=== PATIENT | female | born 1960 | race Caucasian/White ===

== ENCOUNTER 2020-01-16 05:59 | Inpatient (IN) | payer BC ==
[~2020-01-16] VITALS: Ht 172.7 cm; Wt 77.7 kg
[2020-01-16] MEDS ORDERED: SODIUM CHLORIDE 0.9% 1,000 ML IV SCH (06:14)
[2020-01-16] MEDS ORDERED: ONDA8TAB9 PO (06:33)
[2020-01-16] MEDS ORDERED: SERT50TA28 PO (06:33)
[2020-01-16] MEDS ORDERED: IBUP-1222 PO (06:33)
[2020-01-16] MEDS ORDERED: TRAZ-175 PO (06:33)
[2020-01-16] MEDS ORDERED: OXYC-307 PO (06:33)
[2020-01-16] MEDS ORDERED: RIZA10TA34 PO (06:33)
[2020-01-16] MEDS ORDERED: GABA600T7 PO (06:33)
[2020-01-16] MEDS ORDERED: ZOLP-413 PO (06:33)
[2020-01-16] MEDS ORDERED: METO25TA35 PO (06:33)
[2020-01-16] MEDS ORDERED: CETI10CA PO (06:33)
[2020-01-16] MEDS ORDERED: BUTA1CAP30 PO (06:33)
[2020-01-16] MEDS ORDERED: MAGN400T36 PO (06:33)
[2020-01-16 06:34] VITALS: BP 124/82
[2020-01-16 06:50] LABS: BASOPHILS # (AUTO) 0.03 x10^3/uL (0-0.1); BASOPHILS % (AUTO) 1 % (0-1); EOSINOPHILS # (AUTO) 0.23 x10^3/uL (0-0.4); EOSINOPHILS % (AUTO) 3 % (1-7); LYMPHOCYTES # (AUTO) 1.86 x10^3/uL (1-3.4); LYMPHOCYTES % (AUTO) 27 % (22-44); MD NO; MEAN CORPUSCULAR HGB CONC 33.9 g/dL (32.4-35.8); MEAN CORPUSCULAR VOLUME 100.2 fL (80-100); MEAN PLATELET VOLUME 9.3 fL (7.4-10.4); MONOCYTES # (AUTO) 0.44 x10^3/uL (0.2-0.8); MONOCYTES % (AUTO) 7 % (2-9); NEUTROPHILS # (AUTO) 4.31 x10^3/uL (1.8-6.8); NEUTROPHILS % (AUTO) 63 % (42-75); PLATELET COUNT 195 x10^3/uL (130-400); RED BLOOD COUNT 4.12 x10^6/uL (3.82-5.3); RED CELL DISTRIBUTION WIDTH 13.3 % (9.6-15.2)
[2020-01-16 07:00] LABS: ANION GAP 5 mmol/L (5-15); CALCIUM 8.5 mg/dL (8.5-10.1); CHLORIDE 111 mmol/L (98-107); CREATININE 0.88 mg/dL (0.55-1.02)
[2020-01-16] MEDS ORDERED: MIDAZOLAM 1 MG/ML, 2ML ONE (07:41)
[2020-01-16] MEDS ORDERED: FENTANYL PF 100 MCG/2ML ONE ×2 (07:42→09:15)
[2020-01-16] MEDS ORDERED: ISOPROTERENOL 0.2MG/ML, 5ML ONE (07:42)
[2020-01-16] MEDS ORDERED: LIDOCAINE 1%, 20ML ONE (07:42)
[2020-01-16] MEDS ORDERED: MIDAZOLAM 1 MG/ML, 5ML ONE ×2 (09:15→09:34)
[2020-01-16] MEDS ORDERED: PROPOFOL 10 MG/ML, 100ML IV ONE (09:34)
[2020-01-16] MEDS ORDERED: ETOMIDATE 20 MG/10 ML ONE (09:34)
[2020-01-16] MEDS ORDERED: SODIUM BICARB 8.4%, 50ML SYRINGE ONE (09:34)
[2020-01-16] MEDS ORDERED: HEPARIN 1,000 UNITS/ML, 10ML ONE ×2 (09:39→10:13)
[2020-01-16] MEDS ORDERED: METOPROLOL TARTRATE 25 MG TAB PO PRN (10:30)
[2020-01-16] MEDS ORDERED: ACETAMINOPHEN 325 MG TABLET PO PRN (10:30)
[2020-01-16] MEDS ORDERED: IBUPROFEN 600 MG TABLET PO PRN (10:30)
[2020-01-16] MEDS ORDERED: ONDANSETRON 8 MG TABLET PO PRN (10:30)
[2020-01-16] MEDS ORDERED: RIZATRIPTAN 10MG TABLET PO PRN (10:30)
[2020-01-16] MEDS ORDERED: ZOLPIDEM 5MG TABLET PO PRN (10:30)
[2020-01-16] MEDS ORDERED: METOPROLOL 1 MG/ML, 5ML ONE (10:40)
[2020-01-16] MEDS: OXYcodone/APAP 10/325MG TABLET PO SCH ×3 (11:44→23:36)
[2020-01-16] MEDS ORDERED: SODIUM BICARBONATE 1 MEQ/ML, 50ML VIAL IVPush STA (12:47)
[2020-01-16] MEDS ORDERED: SODIUM BICARB 8.4%, 50ML SYRINGE IVPush STA (12:50)
[2020-01-16] MEDS ORDERED: PHENYLEPHRINE 50 MG in SODIUM CHLORIDE 0.9% 245 ML IV PRN (13:00)
[2020-01-16] MEDS ORDERED: SODIUM BICARB 8.4%, 50ML SYRINGE IVPush ONE (13:00)
[2020-01-16] MEDS ORDERED: MIDAZOLAM 1 MG/ML, 5ML IV ONE (13:14)
[2020-01-16 13:17] LABS: ALANINE AMINOTRANSFERASE 16 U/L (12-78); ALBUMIN 1.9 g/dL (3.4-5.0); ANION GAP 8 mmol/L (5-15); CHLORIDE 118 mmol/L (98-107); CREATININE 0.76 mg/dL (0.55-1.02)
[2020-01-16 13:20] LABS: ALKALINE PHOSPHATASE 49 U/L (45-117); BILIRUBIN,TOTAL 0.3 mg/dL (0.2-1.0)
[2020-01-16 13:24] LABS: CALCIUM 5.9 mg/dL (8.5-10.1)
[2020-01-16] MEDS ORDERED: NOREPINEPHRINE 8 MG in SODIUM CHLORIDE 0.9% 242 ML IV PRN (14:10)
[2020-01-16] MEDS ORDERED: LIDOCAINE-MPF 1%, 2ML ENDO PRN (14:30)
[2020-01-16] MEDS ORDERED: ETOMIDATE 20 MG/10 ML IVPush ONE (14:30)
[2020-01-16] MEDS ORDERED: PHARMACY MAY ADJ FOR RENAL FX MC SCH (14:30)
[2020-01-16] MEDS ORDERED: MIDAZOLAM 1 MG/ML, 5ML IVPush ONE (14:30)
[2020-01-16] MEDS: FENTANYL PF 100 MCG/2ML IVPush PRN ×4 (15:05→22:33)
[2020-01-16] MEDS: PROPOFOL 100 ML IV PRN ×3 (15:06→21:21)
[2020-01-16] MEDS: GABAPENTIN 300 MG CAPSULE PO SCH ×2 (17:16→21:38)
[2020-01-16] MEDS: FAMOTIDINE 20 MG/2 ML IV SCH ×2 (17:16→21:38)
[2020-01-16] MEDS ORDERED: TRAZODONE 100MG TABLET PO SCH (21:00)
[2020-01-17] MEDS: FENTANYL PF 100 MCG/2ML IVPush PRN ×3 (00:31→08:20)
[2020-01-17] MEDS: PROPOFOL 100 ML IV PRN ×2 (01:20→06:17)
[2020-01-17 03:45] VITALS: BP 122/75
[2020-01-17 05:21] LABS: MEAN CORPUSCULAR HEMOGLOBIN 34.4 pg (27.0-34.8); MEAN CORPUSCULAR HGB CONC 33.7 g/dL (32.4-35.8); MEAN CORPUSCULAR VOLUME 102.1 fL (80-100); MEAN PLATELET VOLUME 9.4 fL (7.4-10.4); PLATELET COUNT 163 x10^3/uL (130-400); RED BLOOD COUNT 3.67 x10^6/uL (3.82-5.3)
[2020-01-17] MEDS: OXYcodone/APAP 10/325MG TABLET PO SCH ×4 (05:23→23:00)
[2020-01-17 05:25] LABS: ANION GAP 5 mmol/L (5-15); CHLORIDE 112 mmol/L (98-107); CREATININE 0.58 mg/dL (0.55-1.02)
[2020-01-17 05:53] LABS: BASOPHILS # (AUTO) 0.03 x10^3/uL (0-0.1); BASOPHILS % (AUTO) 0 % (0-1); EOSINOPHILS # (AUTO) 0.05 x10^3/uL (0-0.4); EOSINOPHILS % (AUTO) 0 % (1-7); LYMPHOCYTES # (AUTO) 0.89 x10^3/uL (1-3.4); LYMPHOCYTES % (AUTO) 7 % (22-44); MD SCAN; MONOCYTES % (AUTO) 6 % (2-9); NEUTROPHILS # (AUTO) 11.05 x10^3/uL (1.8-6.8); NEUTROPHILS % (AUTO) 87 % (42-75)
[2020-01-17] MEDS ORDERED: ALBUMIN HUMAN 25% 100 ML IV ONE ×2 (07:30)
[2020-01-17] MEDS ORDERED: MIDAZOLAM 1 MG/ML, 2ML IVPush PRN (07:30)
[2020-01-17] MEDS: FAMOTIDINE 20 MG/2 ML IV SCH ×2 (08:17→20:39)
[2020-01-17] MEDS: GABAPENTIN 300 MG CAPSULE PO SCH ×3 (08:18→19:40)
[2020-01-17] MEDS: MAGNESIUM OXIDE 400 MG TABLET PO SCH (09:00)
[2020-01-17] MEDS ORDERED: CETIRIZINE 10 MG TABLET PO SCH (09:00)
[2020-01-17] MEDS ORDERED: SERTRALINE 50MG TABLET PO SCH (09:00)
[2020-01-17 20:49] VITALS: BP 103/71
[2020-01-17] MEDS: TRAZODONE 100MG TABLET PO SCH (23:13)
[2020-01-17] MEDS ORDERED: SODIUM CHLORIDE 0.9%, 250ML IVBOLUS ONE (23:30)
[2020-01-18 01:08] VITALS: BP 91/56
[2020-01-18 03:29] VITALS: BP 104/69
[2020-01-18] MEDS: OXYcodone/APAP 10/325MG TABLET PO SCH ×4 (03:35→23:21)
[2020-01-18 04:30] LABS: ANION GAP 6 mmol/L (5-15); CALCIUM 8.6 mg/dL (8.5-10.1); CHLORIDE 109 mmol/L (98-107)
[2020-01-18 04:38] LABS: BASOPHILS # (AUTO) 0.02 x10^3/uL (0-0.1); BASOPHILS % (AUTO) 0 % (0-1); EOSINOPHILS # (AUTO) 0.08 x10^3/uL (0-0.4); EOSINOPHILS % (AUTO) 1 % (1-7); LYMPHOCYTES % (AUTO) 14 % (22-44); MD NO; MEAN CORPUSCULAR HGB CONC 33.6 g/dL (32.4-35.8); MEAN CORPUSCULAR VOLUME 101.3 fL (80-100); MEAN PLATELET VOLUME 9.8 fL (7.4-10.4); MONOCYTES # (AUTO) 0.88 x10^3/uL (0.2-0.8); MONOCYTES % (AUTO) 9 % (2-9); NEUTROPHILS # (AUTO) 7.73 x10^3/uL (1.8-6.8); NEUTROPHILS % (AUTO) 77 % (42-75); PLATELET COUNT 122 x10^3/uL (130-400); RED BLOOD COUNT 3.09 x10^6/uL (3.82-5.3); RED CELL DISTRIBUTION WIDTH 13.4 % (9.6-15.2)
[2020-01-18] MEDS ORDERED: MAGNESIUM HYDROXIDE 8%, 30ML UDC PO PRN (08:30)
[2020-01-18] MEDS: CETIRIZINE 10 MG TABLET PO SCH (08:40)
[2020-01-18] MEDS: MAGNESIUM OXIDE 400 MG TABLET PO SCH (08:40)
[2020-01-18] MEDS: FAMOTIDINE 20 MG TABLET PO SCH ×2 (08:40→21:45)
[2020-01-18] MEDS: GABAPENTIN 300 MG CAPSULE PO SCH ×3 (08:40→21:46)
[2020-01-18 10:21] VITALS: BP 115/72
[2020-01-18 13:28] VITALS: BP 93/56
[2020-01-18 19:17] VITALS: BP 100/62
[2020-01-18] MEDS ORDERED: CETIRIZINE 10 MG TABLET PO SCH (21:00)
[2020-01-18] MEDS ORDERED: SERTRALINE 50MG TABLET PO SCH (21:00)
[2020-01-18] MEDS: TRAZODONE 100MG TABLET PO SCH (21:46)
[2020-01-19 02:08] VITALS: BP 95/62
[2020-01-19] MEDS: OXYcodone/APAP 10/325MG TABLET PO SCH (05:34)
[2020-01-19] MEDS ORDERED: ASPI81TA45 PO (08:23)
[2020-01-19] MEDS: GABAPENTIN 300 MG CAPSULE PO SCH (09:40)
[2020-01-19] MEDS: FAMOTIDINE 20 MG TABLET PO SCH (09:40)
[2020-01-19] MEDS: CETIRIZINE 10 MG TABLET PO SCH (09:40)
[2020-01-19] MEDS: MAGNESIUM OXIDE 400 MG TABLET PO SCH (09:40)
== END 2020-01-19 11:17 | disposition home or self-care (01) | DRG 273 ==
LOC: CACL 05:59 → 5SO 10:07 → CCU 12:56 → 5SO 01-18 09:46
PROVIDERS: ADMIT Internal Medicine Cardiovascular Disease; ATTEND Internal Medicine Cardiovascular Disease
PROC: 02583ZZ Destruction of Conduction Mechanism, Percutaneous Approach (ICD-10-PCS; principal; 2020-01-16)
PROC: 02K83ZZ Map Conduction Mechanism, Percutaneous Approach (ICD-10-PCS; 2020-01-16)
PROC: 4A023FZ Measurement of Cardiac Rhythm, Percutaneous Approach (ICD-10-PCS; 2020-01-16)
PROC: 4A0234Z Measurement of Cardiac Electrical Activity, Percutaneous Approach (ICD-10-PCS; 2020-01-16)
PROC: 0W9D3ZZ Drainage of Pericardial Cavity, Percutaneous Approach (ICD-10-PCS; 2020-01-16)
DX: I47.1 Supraventricular tachycardia (principal); E43 Unspecified severe protein-calorie malnutrition; J96.01 Acute respiratory failure with hypoxia; D62 Acute posthemorrhagic anemia; I31.3 Pericardial effusion (noninflammatory); I31.4 Cardiac tamponade; Z99.11 Dependence on respirator [ventilator] status; D75.89 Other specified diseases of blood and blood-forming organs; F32.9 Major depressive disorder, single episode, unspecified; F41.9 Anxiety disorder, unspecified; G89.29 Other chronic pain; I48.91 Unspecified atrial fibrillation; Z79.891 Long term (current) use of opiate analgesic; Z87.891 Personal history of nicotine dependence; Z88.6 Allergy status to analgesic agent; Z68.26 Body mass index [BMI] 26.0-26.9, adult
CPT/HCPCS: 33016; 36415; 36600; 93462; 93613; 93621; 93653; 93662; J3490; 71045; 71046; 80048; 80053; 82533; 82803; 82962; 83735; 84443; 84478; 85014; 85018; 85025; 85347; 86850; 86900; 86923; 87070; 87081; 87205; 93005; 93308; 93321; 93325; 94002; 94003; 99156; 99157; C1729; C1732; C1766; C1893; C1894; G0378; J1644; J2250; J2704; J3010; P9047; C1730; C1759; C2630; J2370; J7050